=== PATIENT | male | born 1995 | race Caucasian/White ===

== ENCOUNTER 2020-05-05 20:52 | Emergency (ER) | payer OTHER, SELFPAY ==
[2020-05-05 20:58] VITALS: BP 113/66; PULSE 69; RESP 16; TEMP 37.2; O2SAT 100; BMI 28.1
--- NOTE | 2020-05-05 21:09 | US_ITS ---
EXAMINATION: US SCROTUM CLINICAL INFORMATION: Left testicular pain and swelling. COMPARISON: None TECHNIQUE: A sonogram of the scrotum was performed assessing del cid-scale appearance and color Doppler flow. Spectral Doppler analysis of the arterial and venous flow were performed in the testes bilaterally. FINDINGS: RIGHT: Right testicle measures 5.3 x 2.4 x 2.8 cm, volume 18 mL. No focal testicular parenchymal lesions are visualized. Spectral Doppler analysis of the arterial and venous flow is normal in the right testis. Right epididymal head is normal in size. No right hydrocele or varicocele is seen. Right epididymal Doppler flow is normal. LEFT: Left testicle measures 3.9 x 2.6 x 2.4 cm, volume 12 mL. No focal testicular parenchymal lesions are visualized. Spectral Doppler analysis of the arterial and venous flow is normal in the left testis. Left epididymal head is contains a large multiseptated cyst measuring 4.1 x 3.3 x 3.5 cm. The tail of the left epididymis is markedly thickened somewhat ill-defined and hypervascular (see ramsay image). No left hydrocele or varicocele is seen. Left lateral scrotal wall is thickened. US/US scrotum doppler IMPRESSION: 1. Normal-appearing testes without evidence of malignancy 2. Large multiseptated left epididymal cyst with the remainder of the epididymis enlarged and hypervascular -findings suggestive of large septated epididymal cyst/spermatocele with associated epididymitis.
--- NOTE | 2020-05-05 21:10 | CT_ITS ---
EXAMINATION: CT ABDOMEN AND PELVIS WITHOUT CONTRAST CLINICAL INFORMATION: Lower abdominal and flank pain COMPARISON: None TECHNIQUE: Multidetector volumetric imaging was performed from the superior aspect of the liver through the pubic symphysis. Sagittal and coronal reformatted images were obtained on the technologist's workstation. This CT examination was performed using dose optimization techniques as appropriate, variously including the following: *Automated exposure control *Adjustment of mA and/or kV according to patient size (this includes techniques or standardized protocols for targeted exams where dose is matched to indication/reason for exam; i.e. extremities or head) *Use of iterative reconstruction technique DLP: 655 mGy-cm FINDINGS: LUNG BASES: The visualized lung bases are unremarkable. LIVER, GALLBLADDER, AND BILIARY TREE: The liver is normal in size, shape, and attenuation. No focal hepatic lesion or biliary ductal dilatation is present. The gallbladder is unremarkable with no evidence of radiopaque gallstones, gallbladder wall thickening, or obvious pericholecystic inflammatory changes. PANCREAS: Unremarkable. SPLEEN: Unremarkable. ADRENAL GLANDS: Unremarkable. KIDNEYS AND URETERS: The kidneys are normal in size, shape, and attenuation. No hydronephrosis, hydroureter, or calculi seen. No perinephric stranding. BLADDER: Unremarkable. GASTROINTESTINAL TRACT: A moderate amount of stool is present in the rectum and distal sigmoid. The small and large bowel are otherwise unremarkable. No evidence of bowel obstruction. The appendix is unremarkable. ABDOMINAL WALL: No significant hernia is appreciated. LYMPH NODES: Multiple shotty retroperitoneal nodes are seen in the aortocaval region and in the left para-aortic region. Although no single node itself is pathologically enlarged, they appear to be matted together (series 3 image 31) in the left para-aortic region at the level of the renal simona.. VASCULAR: Unremarkable. PELVIC VISCERA: The prostate and seminal vesicles appear normal. There is thickening of the spermatic cord on the left with some minimal inflammatory changes surrounding area OSSEOUS STRUCTURES: Unremarkable. CT/CT abdomen pelvis wo con IMPRESSION: A cause for the patient's flank pain has not been found. Retroperitoneal lymph nodes as described above. A follow-up exam in 2-3 months may be of value and this should be performed with IV contrast media.
--- NOTE | 2020-05-05 21:50 | US_ITS ---
EXAMINATION: US SCROTUM CLINICAL INFORMATION: Left testicular pain and swelling. COMPARISON: None TECHNIQUE: A sonogram of the scrotum was performed assessing del cid-scale appearance and color Doppler flow. Spectral Doppler analysis of the arterial and venous flow were performed in the testes bilaterally. FINDINGS: RIGHT: Right testicle measures 5.3 x 2.4 x 2.8 cm, volume 18 mL. No focal testicular parenchymal lesions are visualized. Spectral Doppler analysis of the arterial and venous flow is normal in the right testis. Right epididymal head is normal in size. No right hydrocele or varicocele is seen. Right epididymal Doppler flow is normal. LEFT: Left testicle measures 3.9 x 2.6 x 2.4 cm, volume 12 mL. No focal testicular parenchymal lesions are visualized. Spectral Doppler analysis of the arterial and venous flow is normal in the left testis. Left epididymal head is contains a large multiseptated cyst measuring 4.1 x 3.3 x 3.5 cm. The tail of the left epididymis is markedly thickened somewhat ill-defined and hypervascular (see ramsay image). No left hydrocele or varicocele is seen. Left lateral scrotal wall is thickened. US/US scrotum IMPRESSION: 1. Normal-appearing testes without evidence of malignancy 2. Large multiseptated left epididymal cyst with the remainder of the epididymis enlarged and hypervascular -findings suggestive of large septated epididymal cyst/spermatocele with associated epididymitis.
[2020-05-05 22:27] LABS: Glucose Urine UA NEG (NEG); Leukocyte Esterase Urine 1+ (NEG); Nitrite Urine NEG (NEG); Urine Blood NEG (NEG); Urine Ketones NEG (NEG); Urine Protein TRACE MG/DL (NEG-TRACE)
[2020-05-05 22:39] LABS: Appearance Urine CLOUDY; Color Urine YELLOW
[2020-05-05 22:40] LABS: Basophils Percent Auto 0.2 % (0-2); Eosinophils Absolute Auto 0.3 X10*3/uL (0.0-0.4); Eosinophils Percent Auto 2.1 % (0-4); Hematocrit 36.9 % (42-52); Hemoglobin 11.8 g/dl (14.0-18.0); Imm Gran Abs Auto 0.04 X10*3/uL (0.00-0.03); Imm Gran Pct Auto 0.3 % (0.0-0.4); Lymphocytes Absolute Auto 2.1 X10*3/uL (1.2-4.9); Lymphocytes Percent Auto 17.3 % (20-40); MANUAL DIFF FLAG NO; Mean Corpuscular Hemoglobin 25.4 pg (27.0-33.0); Mean Corpuscular Volume 79.4 fL (80-98); Mean Platelet Volume 8.5 fL (9.4-12.4); Monocytes Absolute Auto 1.1 X10*3/uL (0.1-1.2); Monocytes Percent Auto 8.7 % (2-11); Neutrophils Absolute Auto 8.6 X10*3/uL (2.0-8.3); Neutrophils Percent Auto 71.4 % (45-73); Platelet Count 342 X10*3/uL (160-400); Red Blood Count 4.65 X10*6/uL (4.60-5.80); Red Cell Distribution Width 12.9 % (11.0-16.0); White Blood Count 12.1 X10*3/uL (4.8-10.8)
[2020-05-05 22:59] LABS: Bacteria Urine TRACE /LPF; Mucus Urine 1+ /LPF; Squamous Epithelial Cell Urine TRACE /LPF; WBC Urine 50-75 /HPF (0-4)
[2020-05-05 23:07] LABS: Alanine Aminotransferase 18 U/L (0-40); Alkaline Phosphatase 106 U/L (39-117); Anion Gap 11 (12-20); Aspartate Amino Transferase 12 U/L (5-37); Bilirubin Total 0.2 mg/dL (0.0-1.0); Blood Urea Nitrogen 12 mg/dL (9-16); Calcium 8.9 mg/dL (8.4-10.2); Carbon Dioxide 29 mmol/L (22-29); Chloride 101 mmol/L (96-108); Creatinine Clr Calc Pharmacy 114.4; Estimated Glomerular Filt Rate > 60; Glucose Random 103 mg/dL (60-115); Potassium 4.3 mmol/l (3.3-5.1); Sodium 137 mmol/L (135-145)
[2020-05-05] MEDS: cefTRIAXone sodium 500 MG, Lidocaine HCl 1 % MPF 1 ML IM (23:49)
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
[2020-05-05] MEDS: Azithromycin 500 MG TABLET 1000 MG PO (23:52)
--- NOTE | 2020-05-06 00:09 | PC.NURSE ---
OBEDIENCE TRAINER ROBERT WITH RN WITNESS TO OBSERVER SWOLLEN TESTICLES. PT LEFT TESTICLE SWOLLEN AND SLIGHT PINK.
[2020-05-07 10:47] LABS: CT PCR NOT DETECTED (Not Detect.); NG PCR DETECTED (Not Detect.)
== END 2020-05-06 00:18 | disposition home or self-care (01) ==
PROVIDERS: Nurse Practitioner Primary Care; Emergency Provider Emergency Medicine
DX: N45.1 Epididymitis (principal); N50.812 Left testicular pain; R10.9 Unspecified abdominal pain; F11.10 Opioid abuse, uncomplicated; F14.10 Cocaine abuse, uncomplicated; Z20.2 Contact with and (suspected) exposure to infections with a predominantly sexual mode of transmission; Z79.899 Other long term (current) drug therapy
CPT/HCPCS: 36415; 74176; 76870; 80053; 81001; 85025; 87086; 87491; 87591; 93975; 96372; 99284; J0696

== ENCOUNTER 2022-08-26 11:43 | Emergency (ER) | payer OTHER, SELFPAY ==
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
[2022-08-26 12:01] VITALS: BP 140/72; PULSE 107; RESP 19; TEMP 36.6; O2SAT 100; BMI 30.1
--- NOTE | 2022-08-26 12:56 | HE.PHANOTE ---
RE METHADONE 100 MG LAST DOSE 08/22 FROM [facility]
[2022-08-26] MEDS: methADONE HCl 20 MG/2 ML ORAL.CONC 75 MG PO (13:06)
== END 2022-08-26 13:32 | disposition home or self-care (01) ==
LOC: HO.ED 13:17
PROVIDERS: Emergency Provider Emergency Medicine
DX: F11.19 Opioid abuse with unspecified opioid-induced disorder (principal); Z79.899 Other long term (current) drug therapy; Z71.51 Drug abuse counseling and surveillance of drug abuser
CPT/HCPCS: 99282; 99283

== ENCOUNTER 2023-12-17 13:39 | Emergency (ER) | payer OTHER, SELFPAY ==
--- NOTE | 2023-12-17 13:41 | ED.OVERDOSE ---
HPI - Overdose General Chief Complaint: Overdose Stated Complaint: OVERDOSE Time Seen by Provider: 12/17/23 13:41 Source: patient, EMS and old records reviewed Mode of arrival: EMS Limitations: no limitations History of Present Illness ED Provider: Sriram Lacey PA-C HPI Narrative: 20-year-old male with history of aware use disorder, previously on methadone, anxiety who presents to the ER for evaluation after he was found altered with a needle next to him. Patient admitting to injecting 4 bags of heroin today. He reports he got his 40 mg of methadone earlier this morning. He is homeless. He denies intent to harm himself and he accidentally overdose. He was found outside with the police station. He did not require Narcan and was breathing on his own. MD complaint: accidental overdose Onset (ago): unknown Treatments Prior to Arrival: none Related Data Home Medications ?Medication ?Instructions ?Recorded ?Confirmed methadone 10 mg/mL oral 100 mg PO DAILY 08/26/22 08/26/22 concentrate (Methadone Intensol) Previous Rx's ?Medication ?Instructions ?Recorded clonidine HCl 0.1 mg tablet 0.1 mg PO BEDTIME PRN Withdrawal 05/05/20 #7 tabs doxycycline monohydrate 100 mg 100 mg PO BID 10 days #20 caps 05/05/20 capsule Allergies Allergy/AdvReac Type Severity Reaction Status Date / Time No Known Allergies Allergy Verified 12/17/23 13:49 [No Known Allergies*] Review of Systems Review of Systems: Yes all other systems are reviewed and are negative PMFSH Past Medical History Medical History (Updated 12/17/23 @ 14:26 by TAMMY Campos) Depression ADHD Heroin addiction PTSD (post-traumatic stress disorder) Bipolar 1 disorder Social History Social History Substance Use Type: Crack/Cocaine, Heroin and IV Drugs Advance Directives: No Physical Exam Vital Signs: Vital Signs: Last Vital Signs Temp 97.5 F 12/17/23 14:18 Pulse 63 12/17/23 14:18 Resp 16 12/17/23 14:18 BP 122/58 L 12/17/23 14:18 Pulse Ox 98 12/17/23 14:18 O2 Del Method Room Air 12/17/23 14:18 BMI result Body Mass Index 29.6 Appearance: Lethargic, unkempt Oriented X3. No acute distress. Leaves in his hair Head: normocephalic, atraumatic. Eyes: Pupils equal, round and reactive to light. ENT: Pharynx normal. No tonsillar swelling or exudate. Neck: Normal inspection. Neck supple. CVS: Normal heart rate and rhythm. Pulses normal. Respiratory: No respiratory distress. Breath sounds normal. Abdomen: Soft and nontender. +BS x4 Skin: Skin warm and dry. Normal skin color. Normal skin turgor. No rashes. Extremities: No lower extremity edema. No joint swelling. No track roberts on his upper extremities Neuro/psych: Oriented X 3. No motor deficit. No sensory deficit. CN II-XII intact. Slow to respond at times. Steady gait Medical Decision Making Medical Decision Making MDM Narrative: 20-year-old male presents to the ER for evaluation after he was found altered outside of the police station with a needle next to him. He admitted to injecting 4 bags of heroin into his thigh. He is also on methadone. He arrives to the ER hypotensive and altered. He was refusing IV lab work, and IV fluids. He would rather drink p.o. fluids. After multiple discussions with the patient he states he wanted to go home and be discharged. He is much more awake. His repeat vital signs were normalized. He is steady on his feet, oriented denying SI and HI. Given take-home Narcan and discharged Differential Diagnosis Differential Diagnoses: The differential diagnosis associated with the presentation includes Accidental overdose, intentional overdose, polysubstance overdose, polysubstance use disorder Admission/Observation Consideration of admission/observation: Escalation of care including admission/observation considered Independent Historian Clinical information obtained from an independent historian. History obtained from or confirmed by: EMS External Record Review External record reviewed: Outpatient record, Prior outpatient labs and Prior outpatient radiology Tests considered The following testing was considered but not selected: Basic lab workup was considered however patient refused Prescription Management I considered prescription management with: Other (Narcan) Chronic Conditions Patient?s care impacted by: Other (Polysubstance use disorder, homelessness) Social Determinants Patient?s care significantly limited by Social Determinants of Health including: Inadequate housing, Alcoholism and drug addiction in family, Problems related to primary support group and Other Social Determinant of Health Critical Care Time Critical Care Time Critical Care Time: No Discharge Plan Discharge Clinical Impression: Drug overdose Patient Disposition: Home, Self-Care Instructions: Adult Overdose (ED) Additional Instructions: DO NOT DO DRUGS, THEY CAN KILL YOU Follow up with your methadone clinic If you develop new or worsening symptoms call 911 or come back to the ER for further evaluation. Prescriptions: No Action doxycycline monohydrate 100 mg capsule 100 mg PO BID 10 Days Qty: 20 0RF clonidine HCl 0.1 mg tablet 0.1 mg PO BEDTIME PRN (Reason: Withdrawal) Qty: 7 0RF methadone [Methadone Intensol] 10 mg/mL Concentrate 100 mg PO DAILY Interventions: ED Discharge Assessment Last Done: 12/17/23 14:18 Discharge Date/Time: 12/17/23 14:19 Print Language: Mauritian
[2023-12-17 13:46] VITALS: BP 90/40; PULSE 55; O2SAT 99
[2023-12-17 13:47] VITALS: BP 87/62; PULSE 58; RESP 14; TEMP 36.4; O2SAT 98; BMI 29.6
--- NOTE | 2023-12-17 13:56 | PC.NURSE ---
Pt. refusing IV access, refusing to get changed, refusing treatment. He is very sleepy and falls asleep almost immediately. Per TAMMY Tracy, pt. is ok not to be changed over and just monitored on SPO2 monitor once he falls asleep.
[2023-12-17 14:07] VITALS: BP 122/58; PULSE 63; RESP 16; O2SAT 98
--- NOTE | 2023-12-17 14:12 | PC.NURSE ---
Pt. is staying awake, demonstrated walking, is drinking fluids. Plan to discharge
--- NOTE | 2023-12-17 14:16 | PC.NURSE ---
Pt. refused to be registered, security called to escort pt. out and to gather his belongings.
[2023-12-17 14:18] VITALS: BP 122/58; PULSE 63; RESP 16; TEMP 36.4; O2SAT 98
== END 2023-12-17 14:19 | disposition home or self-care (01) ==
LOC: HO.ED 14:16
PROVIDERS: Emergency Provider Emergency Medicine
DX: T40.1X1A Poisoning by heroin, accidental (unintentional), initial encounter (principal); I95.89 Other hypotension; Y92.9 Unspecified place or not applicable; F11.90 Opioid use, unspecified, uncomplicated
CPT/HCPCS: 99282

== ENCOUNTER 2024-10-21 02:56 | Emergency (ER) | payer OTHER, SELFPAY ==
[2024-10-21 03:00] VITALS: BP 96/46; PULSE 59; RESP 18; TEMP 36.4; O2SAT 94; BMI 24.3
--- NOTE | 2024-10-21 03:13 | PC.NURSE ---
Pt noted to be falling asleep while this RN asked patient questions. Pt arousable to loud noises and his name being called but goes right back to sleep. Callbell in place.
--- NOTE | 2024-10-21 03:21 | ED.DENTAL ---
HPI - Dental/Oral General Chief complaint: Dental/Oral Stated complaint: Abscess in mouth Time Seen by Provider: 10/21/24 03:12 Source: patient Mode of arrival: ambulatory Limitations: no limitations History of Present Illness ED Provider: Dr. Yvette Tovar HPI Narrative: Patient comes to the emergency room complaining of dental pain in the left mandibular side. Patient states it has been going on for years? . Patient is under the influence of drugs? Patient reports that he has been smoking a lot of weed. Patient denies any fever or chills. Related Data Home Medications ?Medication ?Instructions ?Recorded ?Confirmed methadone 10 mg/mL oral 100 mg PO DAILY 08/26/22 08/26/22 concentrate (Methadone Intensol) Previous Rx's ?Medication ?Instructions ?Recorded clonidine HCl 0.1 mg tablet 0.1 mg PO BEDTIME PRN Withdrawal 05/05/20 #7 tabs doxycycline monohydrate 100 mg 100 mg PO BID 10 days #20 caps 05/05/20 capsule amoxicillin 500 mg tablet 500 mg PO BID #14 tabs 10/21/24 Allergies Allergy/AdvReac Type Severity Reaction Status Date / Time No Known Allergies (No Known Allergy Verified 10/21/24 03:08 Allergies*) Review of Systems Review of Systems: Constitutional : No Weight loss, No Fever, No Chills, No Night Sweats, No Fatigue, No Malaise ENT/Mouth : Complaining of dental pain on the left mandibular side. No Hearing loss, No Ear Pain, No Nasal Congestion, No Sinus Pain, No Hoarseness, No sore throat, No Rhinorrhea, No Swallowing Difficulty Eyes: No Eye Pain, No Swelling, No Redness, No Foreign Body, No Discharge, No Vision Changes Cardiovascular : No Chest Pain, No SOB, No Dyspnea on Exertion, No Orthopnea, No Edema, No Palpitations Respiratory : No Cough, No Sputum, No Wheezing, No Smoke Exposure, No Dyspnea Gastrointestinal : No Nausea, No Vomiting, No Diarrhea, No Constipation, No abdominal Pain, No Hematochezia, No Melena Genitourinary : no irregular bleeding, No Dysuria, No Urinary Frequency, No Hematuria, No Urinary Incontinence, No Urgency, No Flank Pain, No Urinary Flow Changes, No Hesitancy Musculoskeletal : No joint pain, No Myalgias, No Joint Swelling Skin : No Skin Lesions, No rash Neuro : No Weakness, No Numbness, No Paresthesias, No Loss of Consciousness, No Dizziness, No Headache Psych : No Anxiety/Panic, No Depression, No SI/HI/AH/VH, No Social Issues, Heme/Lymph: No Bruising, No Bleeding,No Lymphadenopathy Endocrine : No Polyuria, No Polydipsia, No Temperature Intolerance PMF Past Medical History Medical History Depression ADHD Heroin addiction PTSD (post-traumatic stress disorder) Bipolar 1 disorder Social History Social History Substance Use Type: Crack/Cocaine, Heroin and IV Drugs Physical Exam Vital Signs: Vital Signs: Last Vital Signs Temp 97.6 F 10/21/24 03:00 Pulse 59 10/21/24 03:00 Resp 18 10/21/24 03:00 BP 96/46 L 10/21/24 03:00 Pulse Ox 94 10/21/24 03:00 O2 Del Method Room Air 10/21/24 03:00 BMI result Body Mass Index 24.3 Const: Other: Appearance: Alert. Oriented X3. No acute distress. Eyes: Pupils equal, round and reactive to light. ENT: Pharynx normal. Patient has poor dentition overall. Patient has a fractured molar on the left mandibular side, no obvious abscess that could be drained. Neck: Normal inspection. Neck supple. No lymph nodes noted. No crepitus CVS: Normal heart rate and rhythm. Pulses normal. Normal S1 and S2 Respiratory: No respiratory distress. Breath sounds normal. No Wheezing. No rales Abdomen: Soft and nontender. No rigidity. No distention. Skin: Skin warm and dry. Normal skin color. Normal skin turgor. Extremities: No lower extremity edema. No Lacerations. No Rash Neuro: Oriented X 3. No motor deficit. No sensory deficit. Moving all extremities. No slurred speech. CN 2 through 12 grossly intact Psych: calm, cooperative, normal affect Course Course Course Narrative: Patient comes to the emergency room complaining of dental pain. Patient has been having this pain for several years. Medical Decision Making Medical Decision Making [facility] Narrative: I discussed with the patient that he needs to be seen by his dentist. Patient was given the 1st dose of p.o. antibiotics here in the emergency room. Discharge Plan Discharge Clinical Impression: Pain, dental Patient Disposition: Home, Self-Care Instructions: Toothache (ED) Additional Instructions: Please follow-up with your primary care physician tomorrow. If you have any worsening or new symptoms, please return to the emergency room or call 911 Prescriptions: New amoxicillin 500 mg tablet 500 mg PO BID Qty: 14 0RF No Action doxycycline monohydrate 100 mg capsule 100 mg PO BID 10 Days Qty: 20 0RF clonidine HCl 0.1 mg tablet 0.1 mg PO BEDTIME PRN (Reason: Withdrawal) Qty: 7 0RF methadone [Methadone Intensol] 10 mg/mL Concentrate 100 mg PO DAILY Print Language: Prydeinig
[2024-10-21] MEDS: Amoxicillin/Potassium Clav 500 MG TABLET PO (04:38)
[2024-10-21 05:46] VITALS: BP 96/50; PULSE 50; RESP 12; TEMP 36.5; O2SAT 96
--- NOTE | 2024-10-21 06:28 | PC.NURSE ---
Unable to answer most questions as patient continued to fall asleep when trying to speak with him.
[2024-10-21 06:51] VITALS: BP 96/50; PULSE 50; RESP 12; TEMP 36.5; O2SAT 96
== END 2024-10-21 06:30 | disposition home or self-care (01) ==
LOC: HO.ED 06:13
PROVIDERS: Emergency Provider Emergency Medicine
DX: K08.89 Other specified disorders of teeth and supporting structures (principal); F11.90 Opioid use, unspecified, uncomplicated; Z79.899 Other long term (current) drug therapy
CPT/HCPCS: 99282; 99283